=== PATIENT | male | born 1980 | race Caucasian/White ===

== ENCOUNTER → 2018-03-06 | Outpatient (CLI) | payer BC | LOC: BMCIMAGING 13:44 | PROVIDERS: ATTEND Physician Assistant | DX: S42.021A Displaced fracture of shaft of right clavicle, initial encounter for closed fracture (principal) ==

== ENCOUNTER → 2018-04-17 | Outpatient (CLI) | payer BC | LOC: BMCIMAGING 08:58 | PROVIDERS: ATTEND Physician Assistant | DX: S42.001D Fracture of unspecified part of right clavicle, subsequent encounter for fracture with routine healing (principal) ==

== ENCOUNTER → 2018-05-15 | Outpatient (CLI) | payer BC | LOC: BMCIMAGING 09:49 | PROVIDERS: ATTEND Physician Assistant | DX: S42.021D Displaced fracture of shaft of right clavicle, subsequent encounter for fracture with routine healing (principal) ==